=== PATIENT | female | born 1950 | race Caucasian/White ===

== ENCOUNTER 2023-05-19 14:06 | Inpatient (IN) | payer BC, SELFPAY ==
[2023-05-19 15:00] VITALS: BP 137/85; PULSE 80; RESP 18; TEMP 36.2; O2SAT 98
[2023-05-19 18:00] VITALS: BP 132/64; PULSE 69; RESP 18; TEMP 36.2; O2SAT 98
--- NOTE | 2023-05-19 18:13 | PC.ADMIT ---
Patient arrived via stretcher from [facility] in [place] with Dx of Suicide attempt. Patient alert and oriented x 4. She said, she took many tablets of Aspirin but she doesn't think she wanted to kill herself rather it was her call for help/attention. VS: 137/85-80-18, T 97.2, O2sat 98% on RA. Pt has chronic pain in bilateral shoulders, said, she will take Tylenol before going to bed. Appetite rather poor d/t Depression and decreased appetite. Patient's skin check completed. Self inflicted scratches on feet and bilateral legs. Bruised areas on bilateral arms from IVs. Patient is calm and pleasant. Ambulates independently, gait steady. Hospitalist Tania here and visiting pt at this time.
--- NOTE | 2023-05-19 18:20 | HO.PM.IMCN ---
History of Present Illness Data of Consult Service Date: 05/19/23 Requesting physician: Herman Benedict Primary Care Provider: Micah Lucas MD [facility] Reason for consult: medical H&P 73-year-old female with history of ADHD, anxiety, asthma, Nelson's esophagus/GERD, carpal tunnel syndrome, vertigo, hypothyroidism, IBS with sensitivity to grains, history of renal mass, memory impairment, migraines, and osteoarthritis of multiple sites admitted to Psychiatry following an intentional aspirin overdose where patient claims she took about 100 aspirin on 05/09 and was then admitted at [facility] from 05/16-05/18. Consult placed to hospitalist service for medical H and P. On admission to [facility], platelets remain stable at 288. Renal function normal. No evidence significant acid base disorder though did have hypokalemia 2.8 which was repleted orally with improvement to 3.9. She denies any significant ecchymosis, rectal bleeding, epistaxis, or hematuria, or other bleeding. No nausea, vomiting, sob, chest pain. Urine tox screen was positive for benzos and amphetamines. Hospital admission was otherwise uncomplicated. She has no complaints at this time. Denies any illicit drug use, cigarette smoking, or alcohol use. Review of Systems Review of Systems: General: No fevers, malaise, unintentional weight loss HEENT: No blurred vision, diplopia. No sore throat, nasal congestion, rhinorrhea, sinus pain, ear pain Cardiovascular: No chest pain, palpitations, or leg edema Respiratory: No shortness of breath, wheezing, cough GI: No abdominal pain, nausea, vomiting, diarrhea, constipation, melena, hematochezia : No dysuria, hematuria, increased urinary frequency, decreased urinary output MSK: No myalgia, back pain Neuro: No headaches, weakness, paresthesias Skin: No rashes or lesions [facility] Medical History ADHD Anxiety Barretts esophagus GERD (gastroesophageal reflux disease) Hypothyroidism IBS (irritable bowel syndrome) Memory impairment Migraines Osteoarthritis, multiple sites Renal mass Vertigo Social History Household Members: Spouse Housing: House Do you presently have visiting nurse or other home services: No Patient Tobacco Use Status: Never used Tobacco Use of substances other than those prescribed or required for medical reasons: Yes Substance Use Type: Marijuana Substance Use Frequency: Occasionally Last Used Substance: Unknown Last Used Substance Other:: 6 years ago or more Currently Displaying Signs/Symptoms of Drug Intoxication Withdrawal: No Any prior treatment program specific to substance use: No Have you been hit, kicked, punched, or otherwise hurt by someone within the past year? If so, by whom?: No Do you feel safe in your current relationship?: Yes Is there a partner from a previous relationship who is making you feel unsafe now?: No Are you made to feel afraid or neglected: No Advance Directives: No Advance Directives Information Provided: Yes Do you have thoughts of harming others: None Do you have a plan to hurt others: No Plan Recently lost weight without trying: Yes How much weight loss: 2-13 pounds Eating poorly because of decreased appetite: Yes Nutrition screen score: 4 Nutrition Risks: Poor intake 0-25% >4 days Patient : No : No Poor oral hygiene: No Meds Allergies Allergy/AdvReac Type Severity Reaction Status Date / Time Unable to Assess Allergy Verified 05/19/23 14:11 Active Medications: Current Medications Acetaminophen (Acetaminophen 325 Mg Tablet) 650 mg PO Q6H PRN PRN Reason: Headache/Pain Mild Scale (1-3) Al Hydroxide/Mg Hydroxide (Magnesium Hydrox/Alum Hydrox 30 Ml Oral.Susp) 30 ml PO Q6H PRN PRN Reason: Heartburn/Nausea Amphetamine/Dextroamphetamine (Amphetamine Mixed Salts 10 Mg Tablet) 10 mg PO DAILY [facility] Diazepam (Diazepam 5 Mg Tablet) 10 mg PO DAILY [facility] Duloxetine HCl (Duloxetine Hcl 20 Mg Capsule.Dr) 20 mg PO DAILY [facility] Fluticasone Propionate (Fluticasone Propionate Nasal 16 Gm [place]) 1 spray NOSTRIL-B BID [facility] Folic Acid (Folic Acid 1 Mg Tablet) 1 mg PO DAILY [facility] Hydroxyzine HCl (Hydroxyzine Hcl 25 Mg Tablet) 25 mg PO Q6H PRN PRN Reason: Anxiety Levothyroxine Sodium 112 mcg/ (Levothyroxine Sodium 25 mcg) 137 mcg PO DAILY@0600 [facility] Magnesium Hydroxide (Milk Of Magnesia 30 Ml Oral.Susp) 30 ml PO DAILY PRN PRN Reason: Constipation Methocarbamol (Methocarbamol 500 Mg Tablet) 500 mg PO TID [facility] Non-Formulary Medication (Eszopiclone) 2 mg PO BEDTIME [facility] Omeprazole (Omeprazole 20 Mg Capsule.Dr) 20 mg PO BID@0630,1630 [facility] Oxycodone HCl (Oxycodone Hcl Immed Release 5 Mg Tablet) 5 mg PO Q3H PRN PRN Reason: Pain, Severe (Pain Scale 7-10) Tramadol HCl (Tramadol Hcl 50 Mg Tablet) 50 mg PO BID PRN PRN Reason: Pain Trazodone HCl (Trazodone Hcl 50 Mg Tablet) 50 mg PO BEDTIME MRX1 PRN PRN Reason: Insomnia Vitamin D (Cholecalciferol (Vitamin D3) 25 Mcg Tablet) 125 mcg PO DAILY [facility] Home Medications Medication Instructions Recorded Confirmed Last Taken Type Vitamin D3 5,000 unit PO USEASDIRECTD 05/19/23 05/19/23 Unknown History dextroamphetamine-amphetamine 10 10 mg PO DAILY 05/19/23 05/19/23 Unknown History mg tablet (Adderall) diazepam 5 mg tablet 10 mg PO DAILY 05/19/23 05/19/23 Unknown History duloxetine 30 mg capsule,delayed 20 mg PO DAILY 05/19/23 05/19/23 Unknown History release eszopiclone 2 mg tablet 2 mg PO BEDTIME 05/19/23 05/19/23 Unknown History flunisolide 25 mcg (0.025 %) nasal 25 mcg intranasal BID 05/19/23 05/19/23 Unknown History spray folic acid 1 mg PO DAILY 05/19/23 05/19/23 Unknown History levothyroxine 125 mcg tablet 137 mcg PO DAILY 05/19/23 05/19/23 Unknown History methocarbamol 500 mg tablet 500 mg PO TID 05/19/23 05/19/23 Unknown History omeprazole 20 mg capsule,delayed 20 mg PO BID 05/19/23 05/19/23 Unknown History release oxycodone 5 mg tablet 5 mg PO Q2-4H PRN Pain 05/19/23 05/19/23 Unknown History tramadol 50 mg PO USEASDIRECTD PRN Pain 05/19/23 05/19/23 Unknown History Physical Exam Vital Signs and Narrative: Vital Signs: Last Vital Signs Temp 97.2 F 05/19/23 15:00 Pulse 80 05/19/23 15:00 Resp 18 05/19/23 15:00 BP 137/85 05/19/23 15:00 Pulse Ox 98 05/19/23 15:00 O2 Del Method Room Air 05/19/23 15:00 Constitutional - Awake and Alert, No apparent distress Eyes - PERRLA, EOMI Head- normocephalic, atraumatic. [place] Cardiovascular - S1S2, RRR, No edema Respiratory - Normal lung expansion, Normal respiratory effort, No respiratory distress, CTA bilaterally Gastrointestinal - NT / ND; +BS; No rebound or guarding Extremities - no calf tenderness bilaterally, no swelling Musculoskeletal - Normal inspection, normal ROM Skin - Warm/Dry Neurological - Alert & oriented x3, CN II-XII in tact, / strength BUE and BLE Psychological - Appropriate affect Assessment and Plan (1) Routine medical exam: Status: Acute Plan 73-year-old female with history of ADHD, anxiety, asthma, Nelson's esophagus/GERD, carpal tunnel syndrome, vertigo, hypothyroidism, IBS with sensitivity to grains, history of renal mass, memory impairment, migraines, and osteoarthritis of multiple sites admitted to Psychiatry following an intentional aspirin overdose where patient claims she took about 100 aspirin on 05/09 and was then admitted at [facility] from 05/16-05/18. Consult placed to hospitalist service for medical H and P. #Salicylate overdose -pt reports having taken 100 tabs asa on 05/09 and presented to [facility] admitted 05/16-05/18 -No significant acid/base disturbance, thought hypokalemia 2.8, repleted with 60meq KCl PO, improved to 3.9 -Platelets stable at 288. No bleeding sequela -repeat CBC and BMP tomorrow -Plan per psych #Mood disorder/ADHD -plan per psychiatry # hypothyroidism -euthyroid at [facility] -continue levothyroxine # Nelson's esophagus/GERD -continue PPI, Tums p.r.n. #Asthma -continue maintenance medications, albuterol p.r.n. # osteoarthritis -continue home meds #CKD stage 3 -renal function rishi Thank you for allowing me to participate in this consult. Signing off at this time. Please do not hesitate to call for further questions. Time Spent With Patient Time: Total time managing care of this patient today ____ minutes.
[2023-05-19] MEDS: Acetaminophen 325 MG TABLET 650 MG PO (21:06)
[2023-05-19] MEDS: traMADoL HCL 50 MG TABLET PO (21:07)
[2023-05-19] MEDS: Calcium Carbonate 750 MG TAB.CHEW PO (21:08)
[2023-05-19] MEDS: traZODone HCL 50 MG TABLET PO (21:14)
[2023-05-19] MEDS: methocarbamoL 500 MG TABLET PO (21:14)
[2023-05-19] MEDS: Fluticasone Propionate Nasal 16 GM SPRAY 1 SPRAY NOSTRIL-B (21:17)
[2023-05-19] MEDS: Magnesium Hydrox/Alum Hydrox 30 ML ORAL.SUSP PO (22:49)
[2023-05-20] MEDS: Calcium Carbonate 750 MG TAB.CHEW PO (03:02)
[2023-05-20] MEDS: hydrOXYzine HCL 25 MG TABLET PO ×2 (03:02→20:12)
[2023-05-20] MEDS: Omeprazole 20 MG CAPSULE.DR PO ×2 (06:02→15:45)
[2023-05-20] MEDS: Levothyroxine Sodium 112 MCG, Levothyroxine Sodium 25 MCG 137 MCG PO (06:03)
[2023-05-20 07:55] VITALS: BP 115/71; PULSE 62; RESP 18; TEMP 35.8; O2SAT 99
[2023-05-20] MEDS: Amphetamine Mixed Salts 10 MG TABLET PO (07:58)
[2023-05-20] MEDS: Cholecalciferol (Vitamin D3) 25 MCG TABLET 125 MCG PO (07:58)
[2023-05-20] MEDS: Folic Acid 1 MG TABLET PO (07:59)
[2023-05-20] MEDS: Fluticasone Propionate Nasal 16 GM SPRAY 1 SPRAY NOSTRIL-B ×2 (08:00→20:12)
[2023-05-20] MEDS: DULoxetine HCl 20 MG CAPSULE.DR PO ×2 (08:01→20:12)
--- NOTE | 2023-05-20 08:12 | P.HPPS_ITS ---
HPI Date of Service: 05/20/23 Chief Complaint: F32.9 Sources of Information: patient interviewed, chart reviewed and crisis/core team assessment reviewed HPI Subjective Notes: Archer Warning and Conditional Voluntary Narrative: The patient is a 73-year-old female, , mother of 2 adult children, living with her with good social support. The patient carries a diagnosis of major depressive disorder, ADHD, and several medical comorbidities. According to the crisis assessment and patient's statement, the patient was feeling very depressed for the last months, and she impulsively took an overdose of more than 100 tablets of aspirin in a suicidal attempt. Her rushed to the emergency room, she was medically treated and once she was medically cleared transferring to this facility for psychiatric stabilization. On interview, the patient reported that she had been more isolated with exacerbation of depressive symptoms elicited by depressed mood, anhedonia, lack of energy, feelings of hopelessness and worthlessness and recently with suicidal ideation. She adamantly denies psychotic symptoms. We discussed risks, benefits, side-effects and alternatives and she agreed to the medication changes. The patient was able to contract for safety in the facility and she understood Archer warning. She is willing to continue treatment in this facility. Past Psychiatric History: The patient's 1st psychiatric contact was at the age of 18 after her father committed suicide. She was admitted into the hospital after an overdose of tablets. She had been following outpatient services with different psychiatrist on and off for the last years. She does not have psychot herapy at this moment. Medical Evaluation Reviewed: Yes [facility] Medical History (Updated 05/20/23 @ 15:49 by Herman Benedict) ADHD Anxiety Barretts esophagus GERD (gastroesophageal reflux disease) Hypothyroidism IBS (irritable bowel syndrome) Memory impairment Migraines Osteoarthritis, multiple sites Renal mass Vertigo Family History: Her father committed suicide when she was a teenager. Social History: The patient is currently , mother of 2 adult children with good social support. 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 Substance History: Denies Trauma History: Denies Diagnostics Vital Signs (24Hr): Vital Signs - 24 hr 05/19/23 15:00 05/19/23 18:00 05/20/23 07:55 Temperature 97.2 F 97.1 F 96.5 F L Pulse Rate 80 69 62 Respiratory Rate 18 18 18 Blood Pressure 137/85 132/64 115/71 Pulse Oximetry 98 98 99 Oxygen Delivery Method Room Air Room Air Room Air Labs 05/20/23 08:55 Meds/Allergies Meds Home Medications Medication Instructions Recorded Confirmed Type Vitamin D3 5,000 unit PO USEASDIRECTD 05/19/23 05/19/23 History dextroamphetamine-amphetamine 10 10 mg PO DAILY 05/19/23 05/19/23 History mg tablet (Adderall) diazepam 5 mg tablet 10 mg PO DAILY 05/19/23 05/19/23 History duloxetine 30 mg capsule,delayed 20 mg PO DAILY 05/19/23 05/19/23 History release eszopiclone 2 mg tablet 2 mg PO BEDTIME 05/19/23 05/19/23 History flunisolide 25 mcg (0.025 %) nasal 25 mcg intranasal BID 05/19/23 05/19/23 History spray folic acid 1 mg PO DAILY 05/19/23 05/19/23 History levothyroxine 125 mcg tablet 137 mcg PO DAILY 05/19/23 05/19/23 History methocarbamol 500 mg tablet 500 mg PO TID 05/19/23 05/19/23 History omeprazole 20 mg capsule,delayed 20 mg PO BID 05/19/23 05/19/23 History release oxycodone 5 mg tablet 5 mg PO Q2-4H PRN Pain 05/19/23 05/19/23 History tramadol 50 mg PO USEASDIRECTD PRN Pain 05/19/23 05/19/23 History Allergies Allergies Allergy/AdvReac Type Severity Reaction Status Date / Time Unable to Assess Allergy Verified 05/19/23 14:11 Mental Status Exam Mental Status Exam Patient Appearance: Well Grooomed and Appropriate Patient Orientation: Person, Place, Time and Situation Level of Consciousness: Awake and Appropriate Patient Behavior: Guarded and Passive Mood Description: Withdrawn Affect Description: Constricted Patient Cognition Impaired: Yes Ability to Follow Directions: Good Speech Pattern: Clear Hallucinations: None Delusions: Not Present Thought Process: Distracted and Linear Thought Content: positive for Circumstantial Judgement: Fair Assessment & Plan Assessment & Plan (1) Major depressive disorder: Status: Acute Code(s): F32.9 - Major depressive disorder, single episode, unspecified (2) ADHD: Status: Acute Code(s): F90.9 - Attention-deficit hyperactivity disorder, unspecified type Plan The patient is an elderly female with a past history of depression admitted for a suicidal attempt by overdose of [id number] aspirin. She was medically cleared transferred to this facility for psychiatric stabilization. The patient has strong family history of mental illness since her father committed suicide when she was a teenager. Plan 1. Gather collateral information. 2. Continue with Adult and other medications. 3. We discussed risks, benefits, side-effects and alternatives and she agreed increase Cymbalta up to 20 mg p.o. b.i.d.. 4. Continue medical workout. 5. Reassessment results. 6. 50 minutes checks since the patient is able to contract for safety. Patient educated on: diagnosis and therapeutic strategies Informed Consent: understands Reason for continued inpatient stay Substantial Risk for: harm to self, inability to function, rapid decompensation and med/psych decompensation Statement Statement: I have reviewed the history and physical and performed a pertinent examination on my patient. No changes have occurred unless specified. If the History and Physical was not performed prior to admission, the Hospitalist's service will be consulted for completing the admission physical. Time Spent With Patient Time: Total time managing care of this patient today _45___ minutes.
[2023-05-20 09:51] LABS: Alanine Aminotransferase 23 U/L (0-31); Albumin Level 4.4 g/dL (3.5-5.0); Alkaline Phosphatase 80 U/L (39-117); Anion Gap 16 (12-20); Aspartate Amino Transferase 23 U/L (5-31); Bilirubin Total 0.6 mg/dL (0.0-1.0); Blood Urea Nitrogen 20 mg/dL (9-16); Carbon Dioxide 29 mmol/L (22-29); Chloride 95 mmol/L (96-108); Cholesterol 362 mg/dL; Estimated Glomerular Filt Rate 43; Glucose Fasting 115 mg/dL (60-99); HDL Cholesterol 43 mg/dL; LDL Cholesterol Calculated 274 mg/dl; Potassium 3.8 mmol/L (3.3-5.1); Sodium 136 mmol/L (135-145); Total Protein 7.7 g/dL (6.5-8.0); Triglycerides 225 mg/dL
[2023-05-20] MEDS: traMADoL HCL 50 MG TABLET PO (13:48)
[2023-05-20] MEDS: Acetaminophen 325 MG TABLET 650 MG PO (15:45)
[2023-05-20 19:54] VITALS: BP 102/72; PULSE 66; RESP 18; TEMP 36.1; O2SAT 96
[2023-05-21 07:54] VITALS: BP 128/73; PULSE 76; RESP 18; TEMP 36.1; O2SAT 99
[2023-05-21] MEDS: Fluticasone Propionate Nasal 16 GM SPRAY 1 SPRAY NOSTRIL-B ×2 (08:17→20:36)
[2023-05-21] MEDS: Acetaminophen 325 MG TABLET 650 MG PO ×2 (08:18→20:30)
[2023-05-21] MEDS: Amphetamine Mixed Salts 10 MG TABLET PO (08:18)
[2023-05-21] MEDS: Levothyroxine Sodium 112 MCG, Levothyroxine Sodium 25 MCG 137 MCG PO (08:18)
[2023-05-21] MEDS: Cholecalciferol (Vitamin D3) 25 MCG TABLET 125 MCG PO (08:19)
[2023-05-21] MEDS: Folic Acid 1 MG TABLET PO (08:20)
[2023-05-21] MEDS: Omeprazole 20 MG CAPSULE.DR PO ×2 (08:20→16:26)
[2023-05-21] MEDS: DULoxetine HCl 20 MG CAPSULE.DR PO ×2 (08:20→20:30)
--- NOTE | 2023-05-21 10:26 | P.PNPSI_ITS ---
Subjective Subjective Date of Service: 05/21/23 Reason For Visit: F32.9 Subjective Notes: Conditional Voluntary Interim History: The nursing staff reported the patient slept 6 hours she denies active suicidal ideation and according to the staff she disclosed that she has a poor relation with her . She feels depressed but she is able to contract for safety in the facility. The social media community manager reported that on interview the patient reported that her suicidal attempt was very impulsive. The occupational therapist reported that she scored 18/30 on the Fairview test and 5.0 on the Andi test that shows some mild to moderate cognitive impairment. She did fairly well on groups. On interview we discussed the findings of the occupational therapist and she agr eed to take Aricept 5 mg p.o. q.h.s.. Also we increased the trazodone p.r.n. up to 100 mg at night to target insomnia. Mental Status Exam Mental Status Exam Patient Appearance: Appropriate Patient Orientation: Person and Situation Level of Consciousness: Awake and Appropriate Patient Behavior: Guarded and Passive Mood Description: Calm Affect Description: Constricted Patient Cognition Impaired: Yes Ability to Follow Directions: Good Speech Pattern: Appropriate Hallucinations: None Delusions: Not Present Thought Process: Distracted Thought Content: positive for Almond and positive for Poverty of Content Judgement: Poor Diagnostics Vital Signs (24Hr): Vital Signs - 24 hr 05/20/23 19:54 05/21/23 07:54 Temperature 96.9 F 97.0 F Pulse Rate 66 76 Respiratory Rate 18 18 Blood Pressure 102/72 128/73 Pulse Oximetry 96 99 Oxygen Delivery Method Room Air Room Air Labs 05/20/23 08:55 Labs: Laboratory Results - last 48 hr 05/20/23 08:55 Sodium 136 Potassium 3.8 Chloride 95 L Carbon Dioxide 29 Anion Gap 16 BUN 20 H Creatinine 1.23 Estim Creat Clear Calc TNP Estimated GFR 43 Fasting Glucose 115 H Calcium 11.0 H Total Bilirubin 0.6 AST 23 ALT 23 Alkaline Phosphatase 80 Total Protein 7.7 Albumin 4.4 Triglycerides 225 Cholesterol 362 LDL Cholesterol, Calc 274 HDL Cholesterol 43 Medications Medications Current Medications Acetaminophen (Acetaminophen 325 Mg Tablet) 650 mg PO Q6H PRN PRN Reason: Headache/Pain Mild Scale (1-3) Last Admin: 05/21/23 08:18 Dose: 650 mg Al Hydroxide/Mg Hydroxide (Magnesium Hydrox/Alum Hydrox 30 Ml Oral.Susp) 30 ml PO Q6H PRN PRN Reason: Heartburn/Nausea Last Admin: 05/19/23 22:49 Dose: 30 ml Amphetamine/Dextroamphetamine (Amphetamine Mixed Salts 10 Mg Tablet) 10 mg PO DAILY [facility] Last Admin: 05/21/23 08:18 Dose: 10 mg Calcium Carbonate (Calcium Carbonate 750 Mg Tab.Chew) 750 mg PO Q4H PRN PRN Reason: Heartburn Last Admin: 05/20/23 03:02 Dose: 750 mg Diazepam (Diazepam 5 Mg Tablet) 5 mg PO DAILY PRN PRN Reason: Anxiety Donepezil HCl (Donepezil Hcl 5 Mg Tablet) 5 mg PO BEDTIME [facility] Duloxetine HCl (Duloxetine Hcl 20 Mg Capsule.Dr) 20 mg PO BID [facility] Last Admin: 05/21/23 08:20 Dose: 20 mg Fluticasone Propionate (Fluticasone Propionate Nasal 16 Gm [place]) 1 spray NOSTRIL-B BID [facility] Last Admin: 05/21/23 08:17 Dose: 1 spray Folic Acid (Folic Acid 1 Mg Tablet) 1 mg PO DAILY [facility] Last Admin: 05/21/23 08:20 Dose: 1 mg Hydroxyzine HCl (Hydroxyzine Hcl 25 Mg Tablet) 25 mg PO Q6H PRN PRN Reason: Anxiety Last Admin: 05/20/23 20:12 Dose: 25 mg Levothyroxine Sodium 112 mcg/ (Levothyroxine Sodium 25 mcg) 137 mcg PO DAILY@0600 [facility] Last Admin: 05/21/23 08:18 Dose: 137 mcg Magnesium Hydroxide (Milk Of Magnesia 30 Ml Oral.Susp) 30 ml PO DAILY PRN PRN Reason: Constipation Methocarbamol (Methocarbamol 500 Mg Tablet) 500 mg PO TID PRN PRN Reason: muscle spasms Omeprazole (Omeprazole 20 Mg Capsule.Dr) 20 mg PO BID@0630,1630 [facility] Last Admin: 05/21/23 08:20 Dose: 20 mg Oxycodone HCl (Oxycodone Hcl Immed Release 5 Mg Tablet) 5 mg PO Q3H PRN PRN Reason: Pain, Severe (Pain Scale 7-10) Tramadol HCl (Tramadol Hcl 50 Mg Tablet) 50 mg PO BID PRN PRN Reason: Pain Last Admin: 05/20/23 13:48 Dose: 50 mg Trazodone HCl (Trazodone Hcl 100 Mg Tablet) 100 mg PO BEDTIME MRX1 PRN PRN Reason: Insomnia Vitamin D (Cholecalciferol (Vitamin D3) 25 Mcg Tablet) 125 mcg PO DAILY [facility] Last Admin: 05/21/23 08:19 Dose: 125 mcg Allergies Allergies Allergy/AdvReac Type Severity Reaction Status Date / Time Unable to Assess Allergy Verified 05/19/23 14:11 Assessment & Plan Assessment & Plan (1) Major depressive disorder: Status: Acute Code(s): F32.9 - Major depressive disorder, single episode, unspecified (2) ADHD: Status: Acute Code(s): F90.9 - Attention-deficit hyperactivity disorder, unspecified type Plan The patient is an elderly female with a past history of depression admitted for a suicidal attempt by overdose of [id number] aspirin. She was medically cleared transferred to this facility for psychiatric stabilization. The patient has strong family history of mental illness since her father committed suicide when she was a teenager. Plan 1. Gather collateral information. 2. Continue with Adult and other medications. 3. We discussed risks, benefits, side-effects and alternatives and she agreed increase Cymbalta up to 20 mg p.o. b.i.d.. 4. Continue medical workout. 5. Reassessment results. 6. 15 minutes checks since the patient is able to contract for safety. 7. Start Aricept 5 point mg p.o. q.h.s. to target dementia. She has scored 18/30 on the Fairview test and 5.0 on the Andi test. Reason for continued inpatient stay Substantial Risk for: inability to function, rapid decompensation and med/psych decompensation Time Spent With Patient Time: Total time managing care of this patient today __20__ minutes.
[2023-05-21 18:00] VITALS: BP 103/57; PULSE 61; RESP 18; TEMP 36.7; O2SAT 97
[2023-05-21] MEDS: Donepezil HCl 5 MG TABLET PO (20:29)
[2023-05-22] MEDS: Omeprazole 20 MG CAPSULE.DR PO ×2 (06:15→16:22)
[2023-05-22] MEDS: Levothyroxine Sodium 112 MCG, Levothyroxine Sodium 25 MCG 137 MCG PO (06:15)
[2023-05-22 08:20] VITALS: BP 116/74; PULSE 68; RESP 18; TEMP 36.7; O2SAT 96
[2023-05-22] MEDS: Amphetamine Mixed Salts 10 MG TABLET PO (08:26)
[2023-05-22] MEDS: Cholecalciferol (Vitamin D3) 25 MCG TABLET 125 MCG PO (08:27)
[2023-05-22] MEDS: Folic Acid 1 MG TABLET PO (08:27)
[2023-05-22] MEDS: DULoxetine HCl 20 MG CAPSULE.DR PO ×2 (09:33→20:02)
[2023-05-22] MEDS: Fluticasone Propionate Nasal 16 GM SPRAY 1 SPRAY NOSTRIL-B ×2 (09:35→20:08)
--- NOTE | 2023-05-22 11:41 | P.PNPSI_ITS ---
Subjective Subjective Date of Service: 05/22/23 Reason For Visit: F32.9 Subjective Notes: Conditional Voluntary Interim History: The nursing staff reported the patient is alert oriented x4, she tries to minimize her overdose. She has been social in the unit, she refused Cymbalta in the evening. The social science research assistant reported contacted her but so far we could not get the response. We will try to get a family meeting as soon as possible. On interview the patient denies active suicidal ideation she is pleasant and cooperative, will increase her Cymbalta. Mental Status Exam Mental Status Exam Patient Appearance: Well Grooomed and Appropriate Patient Orientation: Person and Situation Level of Consciousness: Awake and Appropriate Patient Behavior: Guarded and Passive Mood Description: Withdrawn Affect Description: Calm Patient Cognition Impaired: Yes Ability to Follow Directions: Good Speech Pattern: Clear Hallucinations: None Delusions: Not Present Thought Process: Linear Thought Content: positive for [place] Judgement: Fair Diagnostics Vital Signs (24Hr): Vital Signs - 24 hr 05/21/23 18:00 05/22/23 08:20 Temperature 98.1 F 98.1 F Pulse Rate 61 68 Respiratory Rate 18 18 Blood Pressure 103/57 L 116/74 Pulse Oximetry 97 96 Oxygen Delivery Method Room Air Room Air Labs 05/20/23 08:55 Medications Medications Current Medications Acetaminophen (Acetaminophen 325 Mg Tablet) 650 mg PO Q6H PRN PRN Reason: Headache/Pain Mild Scale (1-3) Last Admin: 05/21/23 20:30 Dose: 650 mg Al Hydroxide/Mg Hydroxide (Magnesium Hydrox/Alum Hydrox 30 Ml Oral.Susp) 30 ml PO Q6H PRN PRN Reason: Heartburn/Nausea Last Admin: 05/19/23 22:49 Dose: 30 ml Amphetamine/Dextroamphetamine (Amphetamine Mixed Salts 10 Mg Tablet) 10 mg PO DAILY [facility] Last Admin: 05/22/23 08:26 Dose: 10 mg Calcium Carbonate (Calcium Carbonate 750 Mg Tab.Chew) 750 mg PO Q4H PRN PRN Reason: Heartburn Last Admin: 05/20/23 03:02 Dose: 750 mg Diazepam (Diazepam 5 Mg Tablet) 5 mg PO DAILY PRN PRN Reason: Anxiety Donepezil HCl (Donepezil Hcl 5 Mg Tablet) 5 mg PO BEDTIME [facility] Last Admin: 05/21/23 20:29 Dose: 5 mg Duloxetine HCl (Duloxetine Hcl 20 Mg Capsule.) 20 mg PO BID ON LICENSE OF [facility] Last Admin: 05/22/23 09:33 Dose: 20 mg Fluticasone Propionate (Fluticasone Propionate Nasal 16 Gm [place]) 1 spray NOSTRIL-B BID ON LICENSE OF [facility] Last Admin: 05/22/23 09:35 Dose: 1 spray Folic Acid (Folic Acid 1 Mg Tablet) 1 mg PO DAILY ON [facility] OF [facility] Last Admin: 05/22/23 08:27 Dose: 1 mg Hydroxyzine HCl (Hydroxyzine Hcl 25 Mg Tablet) 25 mg PO Q6H PRN PRN Reason: Anxiety Last Admin: 05/20/23 20:12 Dose: 25 mg Levothyroxine Sodium 112 mcg/ (Levothyroxine Sodium 25 mcg) 137 mcg PO DAILY@0600 ON [facility] OF [facility] Last Admin: 05/22/23 06:15 Dose: 137 mcg Magnesium Hydroxide (Milk Of Magnesia 30 Ml Oral.Susp) 30 ml PO DAILY PRN PRN Reason: Constipation Methocarbamol (Methocarbamol 500 Mg Tablet) 500 mg PO TID PRN PRN Reason: muscle spasms Omeprazole (Omeprazole 20 Mg Capsule.) 20 mg PO BID@0630,1630 ON LICENSE OF [facility] Last Admin: 05/22/23 06:15 Dose: 20 mg Oxycodone HCl (Oxycodone Hcl Immed Release 5 Mg Tablet) 5 mg PO Q3H PRN PRN Reason: Pain, Severe (Pain Scale 7-10) Tramadol HCl (Tramadol Hcl 50 Mg Tablet) 50 mg PO BID PRN PRN Reason: Pain Last Admin: 05/20/23 13:48 Dose: 50 mg Trazodone HCl (Trazodone Hcl 100 Mg Tablet) 100 mg PO BEDTIME MRX1 PRN PRN Reason: Insomnia Vitamin D (Cholecalciferol (Vitamin D3) 25 Mcg Tablet) 125 mcg PO DAILY ON LICENSE OF [facility] Last Admin: 05/22/23 08:27 Dose: 125 mcg Allergies Allergies Allergy/AdvReac Type Severity Reaction Status Date / Time Unable to Assess Allergy Verified 05/19/23 14:11 Assessment & Plan Assessment & Plan (1) Major depressive disorder: Status: Acute Code(s): F32.9 - Major depressive disorder, single episode, unspecified (2) ADHD: Status: Acute Code(s): F90.9 - Attention-deficit hyperactivity disorder, unspecified type Plan The patient is an elderly female with a past history of depression admitted for a suicidal attempt by overdose of [id number] aspirin. She was medically cleared transferred to this facility for psychiatric sta bilization. The patient has strong family history of mental illness since her father committed suicide when she was a teenager. Plan 1. Gather collateral information. 2. Continue with Adult and other medications. 3. We discussed risks, benefits, side-effects and alternatives and she agreed increase Cymbalta up to 20 mg p.o. b.i.d.. 4. Continue medical workout. 5. Reassessment results. 6. 15 minutes checks since the patient is able to contract for safety. 7. Start Aricept 5 point mg p.o. q.h.s. to target dementia. She has scored 18/30 on the [place] test and 5.0 on the Andi test. Reason for continued inpatient stay Substantial Risk for: inability to function, rapid decompensation and med/psych decompensation Time Spent With Patient Time: Total time managing care of this patient today _20___ minutes.
[2023-05-22] MEDS: Acetaminophen 325 MG TABLET 650 MG PO (15:31)
[2023-05-22 19:59] VITALS: BP 103/61; PULSE 70; RESP 18; TEMP 36.2; O2SAT 95
[2023-05-22] MEDS: Donepezil HCl 5 MG TABLET PO (20:02)
[2023-05-22] MEDS: traZODone HCL 100 MG TABLET PO (20:02)
[2023-05-23] MEDS: Levothyroxine Sodium 112 MCG, Levothyroxine Sodium 25 MCG 137 MCG PO (06:20)
[2023-05-23 08:40] VITALS: BP 101/64; PULSE 70; RESP 18; TEMP 36.3; O2SAT 98
[2023-05-23] MEDS: Amphetamine Mixed Salts 10 MG TABLET PO (08:44)
[2023-05-23] MEDS: Omeprazole 20 MG CAPSULE.DR PO ×2 (08:44→16:10)
[2023-05-23] MEDS: DULoxetine HCl 20 MG CAPSULE.DR PO ×2 (08:44→20:51)
[2023-05-23] MEDS: Cholecalciferol (Vitamin D3) 25 MCG TABLET 125 MCG PO (08:45)
[2023-05-23] MEDS: Folic Acid 1 MG TABLET PO (08:46)
[2023-05-23] MEDS: Fluticasone Propionate Nasal 16 GM SPRAY 1 SPRAY NOSTRIL-B ×2 (08:49→20:56)
[2023-05-23] MEDS: Acetaminophen 325 MG TABLET 650 MG PO (12:15)
--- NOTE | 2023-05-23 14:54 | P.PNPSI_ITS ---
Subjective Subjective Date of Service: 05/23/23 Reason For Visit: F32.9 Subjective Notes: Conditional Voluntary Interim History: The nursing staff reported the patient had been anxious and depressed she was waiting in the evening. She slept well okay last night and she was confused in the evening. The social media sr strategy manager reported that she has a strong history of trauma that her disclosed that her father committed suicide that she found the body. On interview the patient reports mild anxiety, I will increase her Aricept to 10 mg p.o. q.h.s.. The social media sr strategy manager reported we will have a family meeting next Friday and we were going to for a therapist to help her out in the community. Mental Status Exam Mental Status Exam Patient Appearance: Well Grooomed and Appropriate Patient Orientation: Person and Situation Level of Consciousness: Awake and Appropriate Patient Behavior: Guarded and Passive Mood Description: Calm Affect Description: Constricted Patient Cognition Impaired: Yes Ability to Follow Directions: Good Speech Pattern: Clear Hallucinations: None Delusions: Not Present Thought Process: Distracted and Slowed Thinking Thought Content: positive for [place] Judgement: Fair Diagnostics Vital Signs (24Hr): Vital Signs - 24 hr 05/22/23 19:59 05/23/23 08:40 Temperature 97.2 F 97.3 F Pulse Rate 70 70 Respiratory Rate 18 18 Blood Pressure 103/61 101/64 Pulse Oximetry 95 98 Oxygen Delivery Method Room Air Room Air Labs 05/20/23 08:55 Medications Medications Current Medications Acetaminophen (Acetaminophen 325 Mg Tablet) 650 mg PO Q6H PRN PRN Reason: Headache/Pain Mild Scale (1-3) Last Admin: 05/23/23 12:15 Dose: 650 mg Al Hydroxide/Mg Hydroxide (Magnesium Hydrox/Alum Hydrox 30 Ml Oral.Susp) 30 ml PO Q6H PRN PRN Reason: Heartburn/Nausea Last Admin: 05/19/23 22:49 Dose: 30 ml Amphetamine/Dextroamphetamine (Amphetamine Mixed Salts 10 Mg Tablet) 10 mg PO DAILY [facility] Last Admin: 05/23/23 08:44 Dose: 10 mg Calcium Carbonate (Calcium Carbonate 750 Mg Tab.Chew) 750 mg PO Q4H PRN PRN Reason: Heartburn Last Admin: 05/20/23 03:02 Dose: 750 mg Diazepam (Diazepam 5 Mg Tablet) 5 mg PO DAILY PRN PRN Reason: Anxiety Donepezil HCl (Donepezil Hcl 5 Mg Tablet) 5 mg PO BEDTIME [facility] Last Admin: 05/22/23 20:02 Dose: 5 mg Duloxetine HCl (Duloxetine Hcl 20 Mg Capsule.Dr) 20 mg PO BID [facility] Last Admin: 05/23/23 08:44 Dose: 20 mg Fluticasone Propionate (Fluticasone Propionate Nasal 16 Gm [place]) 1 spray NOSTRIL-B BID [facility] Last Admin: 05/23/23 08:49 Dose: 1 spray Folic Acid (Folic Acid 1 Mg Tablet) 1 mg PO DAILY [facility] Last Admin: 05/23/23 08:46 Dose: 1 mg Hydroxyzine HCl (Hydroxyzine Hcl 25 Mg Tablet) 25 mg PO Q6H PRN PRN Reason: Anxiety Last Admin: 05/20/23 20:12 Dose: 25 mg Levothyroxine Sodium 112 mcg/ (Levothyroxine Sodium 25 mcg) 137 mcg PO DAILY@0600 [facility] Last Admin: 05/23/23 06:20 Dose: 137 mcg Magnesium Hydroxide (Milk Of Magnesia 30 Ml Oral.Susp) 30 ml PO DAILY PRN PRN Reason: Constipation Methocarbamol (Methocarbamol 500 Mg Tablet) 500 mg PO TID PRN PRN Reason: muscle spasms Omeprazole (Omeprazole 20 Mg Capsule.Dr) 20 mg PO BID@0630,1630 [facility] Last Admin: 05/23/23 08:44 Dose: 20 mg Oxycodone HCl (Oxycodone Hcl Immed Release 5 Mg Tablet) 5 mg PO Q3H PRN PRN Reason: Pain, Severe (Pain Scale 7-10) Tramadol HCl (Tramadol Hcl 50 Mg Tablet) 50 mg PO BID PRN PRN Reason: Pain Last Admin: 05/20/23 13:48 Dose: 50 mg Trazodone HCl (Trazodone Hcl 100 Mg Tablet) 100 mg PO BEDTIME MRX1 PRN PRN Reason: Insomnia Last Admin: 05/22/23 20:02 Dose: 100 mg Vitamin D (Cholecalciferol (Vitamin D3) 25 Mcg Tablet) 125 mcg PO DAILY [facility] Last Admin: 05/23/23 08:45 Dose: 125 mcg Allergies Allergies Allergy/AdvReac Type Severity Reaction Status Date / Time Unable to Assess Allergy Verified 05/19/23 14:11 Assessment & Plan Assessment & Plan (1) Major depressive disorder: Status: Acute Code(s): F32.9 - Major depressive disorder, single episode, unspecified (2) ADHD: Status: Acute Code(s): F90.9 - Attention-deficit hyperactivity disorder, unspecified type Plan The patient is an elderly female with a past history of depression admitted for a suicidal attempt by overdose of [id number] aspirin. She was medically cleared transferred to this facility for psychiatric stabiliza tion. The patient has strong family history of mental illness since her father committed suicide when she was a teenager. Plan 1. Gather collateral information. 2. Continue with Adult and other medications. 3. We discussed risks, benefits, side-effects and alternatives and she agreed increase Cymbalta up to 20 mg p.o. b.i.d.. 4. Continue medical workout. 5. Reassessment results. 6. 15 minutes checks since the patient is able to contract for safety. 7. Start Aricept 5 point mg p.o. q.h.s. to target dementia. She has scored 18/30 on the [place] test and 5.0 on the Andi test. Today on May 23 we increased the to 10 mg p.o. q.h.s. Reason for continued inpatient stay Substantial Risk for: inability to function, rapid decompensation and med/psych decompensation Time Spent With Patient Time: Total time managing care of this patient today _20___ minutes.
[2023-05-23 18:00] VITALS: BP 135/79; PULSE 69; RESP 18; TEMP 35.9; O2SAT 96
[2023-05-23] MEDS: Donepezil HCl 10 MG TABLET PO (20:51)
[2023-05-23] MEDS: methocarbamoL 500 MG TABLET PO (21:28)
[2023-05-24] MEDS: Levothyroxine Sodium 112 MCG, Levothyroxine Sodium 25 MCG 137 MCG PO (06:19)
[2023-05-24] MEDS: Omeprazole 20 MG CAPSULE.DR PO ×2 (06:20→17:54)
[2023-05-24 08:20] VITALS: BP 128/79; PULSE 63; RESP 16; TEMP 35.9; O2SAT 98
[2023-05-24] MEDS: Folic Acid 1 MG TABLET PO (08:36)
[2023-05-24] MEDS: Cholecalciferol (Vitamin D3) 25 MCG TABLET 125 MCG PO (08:36)
[2023-05-24] MEDS: DULoxetine HCl 20 MG CAPSULE.DR PO ×2 (08:37→20:46)
[2023-05-24] MEDS: Amphetamine Mixed Salts 10 MG TABLET PO (08:38)
[2023-05-24] MEDS: Fluticasone Propionate Nasal 16 GM SPRAY 1 SPRAY NOSTRIL-B ×2 (11:03→20:45)
[2023-05-24] MEDS: Loperamide HCl 2 MG CAPSULE PO (12:19)
--- NOTE | 2023-05-24 16:57 | HO.PSYCHPN ---
Subjective Subjective Date of Service: 05/24/23 Reason For Visit: F32.9 Subjective Notes: 3 Day (exp05/28) Medical Problems Affecting Mental Status: No Interim History: Remembers me from consult in [facility]. Hopeful that she might be able to go home after family meeting Friday. Medication Compliance: Yes Side effects from medications: No Attending Groups: Yes Review of Systems Acute medical concerns: No Medical Review of Systems: unchanged Mental Status Exam Mental Status Exam Patient Appearance: Well Grooomed Patient Orientation: Person, Place, Time and Situation Level of Consciousness: Awake Patient Behavior: Appropriate Mood Description: Calm Affect Description: Appropriate Patient Cognition Impaired: No Ability to Follow Directions: Excellent Speech Pattern: Clear Memory Description: Intact Hallucinations: None Delusions: Not Present Thought Process: Linear Thought Content: positive for Intact Depressive Symptoms: Increased Anxiety Judgement: Fair Diagnostics Vital Signs (24Hr): Vital Signs - 24 hr 05/23/23 18:00 05/24/23 08:20 Temperature 96.7 F L 96.7 F L Pulse Rate 69 63 Respiratory Rate 18 16 Blood Pressure 135/79 128/79 Pulse Oximetry 96 98 Oxygen Delivery Method Room Air Room Air Labs 05/20/23 08:55 Medications Medications Current Medications Acetaminophen (Acetaminophen 325 Mg Tablet) 650 mg PO Q6H PRN PRN Reason: Headache/Pain Mild Scale (1-3) Last Admin: 05/23/23 12:15 Dose: 650 mg Al Hydroxide/Mg Hydroxide (Magnesium Hydrox/Alum Hydrox 30 Ml Oral.Susp) 30 ml PO Q6H PRN PRN Reason: Heartburn/Nausea Last Admin: 05/19/23 22:49 Dose: 30 ml Amphetamine/Dextroamphetamine (Amphetamine Mixed Salts 10 Mg Tablet) 10 mg PO DAILY [facility] Last Admin: 05/24/23 08:38 Dose: 10 mg Calcium Carbonate (Calcium Carbonate 750 Mg Tab.Chew) 750 mg PO Q4H PRN PRN Reason: Heartburn Last Admin: 05/20/23 03:02 Dose: 750 mg Diazepam (Diazepam 5 Mg Tablet) 5 mg PO DAILY PRN PRN Reason: Anxiety Donepezil HCl (Donepezil Hcl 10 Mg Tablet) 10 mg PO BEDTIME [facility] Last Admin: 05/23/23 20:51 Dose: 10 mg Duloxetine HCl (Duloxetine Hcl 20 Mg Capsule.Dr) 20 mg PO BID [facility] Last Admin: 05/24/23 08:37 Dose: 20 mg Fluticasone Propionate (Fluticasone Propionate Nasal 16 Gm [place]) 1 spray NOSTRIL-B BID [facility] Last Admin: 05/24/23 11:03 Dose: 1 spray Folic Acid (Folic Acid 1 Mg Tablet) 1 mg PO DAILY [facility] Last Admin: 05/24/23 08:36 Dose: 1 mg Hydroxyzine HCl (Hydroxyzine Hcl 25 Mg Tablet) 25 mg PO Q6H PRN PRN Reason: Anxiety Last Admin: 05/20/23 20:12 Dose: 25 mg Levothyroxine Sodium 112 mcg/ (Levothyroxine Sodium 25 mcg) 137 mcg PO DAILY@0600 [facility] Last Admin: 05/24/23 06:19 Dose: 137 mcg Loperamide HCl (Loperamide Hcl 2 Mg Capsule) 2 mg PO Q6H PRN PRN Reason: Diarrhea Last Admin: 05/24/23 12:19 Dose: 2 mg Magnesium Hydroxide (Milk Of Magnesia 30 Ml Oral.Susp) 30 ml PO DAILY PRN PRN Reason: Constipation Methocarbamol (Methocarbamol 500 Mg Tablet) 500 mg PO TID PRN PRN Reason: muscle spasms Last Admin: 05/23/23 21:28 Dose: 500 mg Omeprazole (Omeprazole 20 Mg Capsule.Dr) 20 mg PO BID@0630,1630 [facility] Last Admin: 05/24/23 06:20 Dose: 20 mg Oxycodone HCl (Oxycodone Hcl Immed Release 5 Mg Tablet) 5 mg PO Q3H PRN PRN Reason: Pain, Severe (Pain Scale 7-10) Tramadol HCl (Tramadol Hcl 50 Mg Tablet) 50 mg PO BID PRN PRN Reason: Pain Last Admin: 05/20/23 13:48 Dose: 50 mg Trazodone HCl (Trazodone Hcl 100 Mg Tablet) 100 mg PO BEDTIME MRX1 PRN PRN Reason: Insomnia Last Admin: 05/22/23 20:02 Dose: 100 mg Vitamin D (Cholecalciferol (Vitamin D3) 25 Mcg Tablet) 125 mcg PO DAILY [facility] Last Admin: 05/24/23 08:36 Dose: 125 mcg Allergies Allergies Allergy/AdvReac Type Severity Reaction Status Date / Time Unable to Assess Allergy Verified 05/19/23 14:11 Assessment & Plan Assessment & Plan (1) Major depressive disorder: Status: Acute Code(s): F32.9 - Major depressive disorder, single episode, unspecified Assessment and Plan: no m (2) ADHD: Status: Acute Code(s): F90.9 - Attention-deficit hyperactivity disorder, unspecified type Plan The patient is an elderly female with a past history of depression admitted for a suicidal attempt by overdose of [id number] aspirin. She was medically cleared transferred to this facility for psychiatric stabilization. The patient has strong family history of mental illness since her father committed suicide when she was a teenager. Plan 1. Gather collateral information. 2. Continue with Adult and other medications. 3. We discussed risks, benefits, side-effects and alternatives and she agreed increase Cymbalta up to 20 mg p.o. b.i.d.. 4. Continue medical workout. 5. Reassessment results. 6. 15 minutes checks since the patient is able to contract for safety. 7. Start Aricept 5 point mg p.o. q.h.s. to target dementia. She has scored 18/30 on the [place] test and 5.0 on the Andi test. Today on May 23 we increased the to 10 mg p.o. q.h.s. *. May 24, no med changes Reason for continued inpatient stay Substantial Risk for: harm to self Time Spent With Patient Time: Total time managing care of this patient today _20___ minutes.
[2023-05-24] MEDS: Acetaminophen 325 MG TABLET 650 MG PO (17:53)
[2023-05-24 18:00] VITALS: BP 98/51; PULSE 58; RESP 16; TEMP 36.4; O2SAT 98
[2023-05-24] MEDS: traZODone HCL 100 MG TABLET PO (20:46)
[2023-05-24] MEDS: Donepezil HCl 10 MG TABLET PO (20:46)
[2023-05-25 07:55] VITALS: BP 148/78; PULSE 82; RESP 18; TEMP 36.4; O2SAT 98
[2023-05-25] MEDS: Omeprazole 20 MG CAPSULE.DR PO ×2 (08:17→15:20)
[2023-05-25] MEDS: Fluticasone Propionate Nasal 16 GM SPRAY 1 SPRAY NOSTRIL-B ×2 (08:17→20:23)
[2023-05-25] MEDS: Cholecalciferol (Vitamin D3) 25 MCG TABLET 125 MCG PO (08:17)
[2023-05-25] MEDS: Amphetamine Mixed Salts 10 MG TABLET PO (08:17)
[2023-05-25] MEDS: Levothyroxine Sodium 112 MCG, Levothyroxine Sodium 25 MCG 137 MCG PO (08:17)
[2023-05-25] MEDS: Folic Acid 1 MG TABLET PO (08:17)
[2023-05-25] MEDS: DULoxetine HCl 20 MG CAPSULE.DR PO ×2 (08:17→20:23)
--- NOTE | 2023-05-25 11:38 | HO.PSYCHPN ---
Subjective Subjective Date of Service: 05/25/23 Reason For Visit: F32.9 Subjective Notes: 3 Day (expires 05/28) Medical Problems Affecting Mental Status: No Interim History: Social with peers. Reports that her daughter is coming into town to assist with cleaning her house. Looking forward to family meeting tomorrow.Sleeping and eating OK. Medication Compliance: Yes Attending Groups: Yes Review of Systems Acute medical concerns: No Medical Review of Systems: unchanged Mental Status Exam Mental Status Exam Patient Appearance: Well Grooomed Patient Orientation: Person, Place, Time and Situation Level of Consciousness: Alert Patient Behavior: Appropriate Mood Description: Calm Affect Description: Relaxed Patient Cognition Impaired: No Ability to Follow Directions: Excellent Speech Pattern: Clear Memory Description: Working Impaired Hallucinations: None Delusions: Not Present Thought Process: Linear Depressive Symptoms: Difficulty Concentrating Judgement: Fair Diagnostics Vital Signs (24Hr): Vital Signs - 24 hr 05/24/23 18:00 05/25/23 07:55 Temperature 97.5 F 97.6 F Pulse Rate 58 82 Respiratory Rate 16 18 Blood Pressure 98/51 L 148/78 H Pulse Oximetry 98 98 Oxygen Delivery Method Room Air Room Air Labs 05/20/23 08:55 Medications Medications Current Medications Acetaminophen (Acetaminophen 325 Mg Tablet) 650 mg PO Q6H PRN PRN Reason: Headache/Pain Mild Scale (1-3) Last Admin: 05/24/23 17:53 Dose: 650 mg Al Hydroxide/Mg Hydroxide (Magnesium Hydrox/Alum Hydrox 30 Ml Oral.Susp) 30 ml PO Q6H PRN PRN Reason: Heartburn/Nausea Last Admin: 05/19/23 22:49 Dose: 30 ml Amphetamine/Dextroamphetamine (Amphetamine Mixed Salts 10 Mg Tablet) 10 mg PO DAILY [facility] Last Admin: 05/25/23 08:17 Dose: 10 mg Calcium Carbonate (Calcium Carbonate 750 Mg Tab.Chew) 750 mg PO Q4H PRN PRN Reason: Heartburn Last Admin: 05/20/23 03:02 Dose: 750 mg Donepezil HCl (Donepezil Hcl 10 Mg Tablet) 10 mg PO BEDTIME [facility] Last Admin: 05/24/23 20:46 Dose: 10 mg Duloxetine HCl (Duloxetine Hcl 20 Mg Capsule.Dr) 20 mg PO BID [facility] Last Admin: 05/25/23 08:17 Dose: 20 mg Fluticasone Propionate (Fluticasone Propionate Nasal 16 Gm [place]) 1 spray NOSTRIL-B BID [facility] Last Admin: 05/25/23 08:17 Dose: 1 spray Folic Acid (Folic Acid 1 Mg Tablet) 1 mg PO DAILY [facility] Last Admin: 05/25/23 08:17 Dose: 1 mg Hydroxyzine HCl (Hydroxyzine Hcl 25 Mg Tablet) 25 mg PO Q6H PRN PRN Reason: Anxiety Last Admin: 05/20/23 20:12 Dose: 25 mg Levothyroxine Sodium 112 mcg/ (Levothyroxine Sodium 25 mcg) 137 mcg PO DAILY@0600 [facility] Last Admin: 05/25/23 08:17 Dose: 137 mcg Loperamide HCl (Loperamide Hcl 2 Mg Capsule) 2 mg PO Q6H PRN PRN Reason: Diarrhea Last Admin: 05/24/23 12:19 Dose: 2 mg Magnesium Hydroxide (Milk Of Magnesia 30 Ml Oral.Susp) 30 ml PO DAILY PRN PRN Reason: Constipation Methocarbamol (Methocarbamol 500 Mg Tablet) 500 mg PO TID PRN PRN Reason: muscle spasms Last Admin: 05/23/23 21:28 Dose: 500 mg Omeprazole (Omeprazole 20 Mg Capsule.Dr) 20 mg PO BID@0630,1630 [facility] Last Admin: 05/25/23 08:17 Dose: 20 mg Trazodone HCl (Trazodone Hcl 100 Mg Tablet) 100 mg PO BEDTIME MRX1 PRN PRN Reason: Insomnia Last Admin: 05/24/23 20:46 Dose: 100 mg Vitamin D (Cholecalciferol (Vitamin D3) 25 Mcg Tablet) 125 mcg PO DAILY [facility] Last Admin: 05/25/23 08:17 Dose: 125 mcg Allergies Allergies Allergy/AdvReac Type Severity Reaction Status Date / Time Unable to Assess Allergy Verified 05/19/23 14:11 Assessment & Plan Assessment & Plan (1) Major depressive disorder: Status: Acute Code(s): F32.9 - Major depressive disorder, single episode, unspecified Assessment and Plan: no med changes, consider increasing duloxetine (2) ADHD: Status: Acute Code(s): F90.9 - Attention-deficit hyperactivity disorder, unspecified type Plan The patient is an elderly female with a past history of depression admitted for a suicidal attempt by overdose of ahqn-jqi-sstetum aspirin. She was medically cleared transferred to this facility for psychiatric stabilization. The patient has strong family history of mental illness since her father committed suicide when she was a teenager. Plan 1. Gather collateral information. 2. Continue with Adult and other medications. 3. We discussed risks, benefits, side-effects and alternatives and she agreed increase Cymbalta up to 20 mg p.o. b.i.d.. 4. Continue medical workout. 5. Reassessment results. 6. 15 minutes checks since the patient is able to contract for safety. 7. Start Aricept 5 point mg p.o. q.h.s. to target dementia. She has scored 18/30 on the [place] test and 5.0 on the Andi test. Today on May 23 we increased the to 10 mg p.o. q.h.s. *. May 24, no med changes Reason for continued inpatient stay Substantial Risk for: inability to function Time Spent With Patient Time: Total time managing care of this patient today __15__ minutes.
[2023-05-25] MEDS: methocarbamoL 500 MG TABLET PO ×2 (13:55→21:31)
[2023-05-25 20:00] VITALS: BP 125/81; PULSE 74; RESP 16; TEMP 36.1; O2SAT 97
[2023-05-25] MEDS: Donepezil HCl 10 MG TABLET PO (20:23)
[2023-05-25] MEDS: Acetaminophen 325 MG TABLET 650 MG PO (20:23)
[2023-05-26] MEDS: Levothyroxine Sodium 112 MCG, Levothyroxine Sodium 25 MCG 137 MCG PO (06:37)
[2023-05-26] MEDS: Omeprazole 20 MG CAPSULE.DR PO ×2 (06:37→16:05)
--- NOTE | 2023-05-26 08:28 | HO.PSYCHPN ---
Subjective Subjective Date of Service: 05/26/23 Reason For Visit: F32.9 Subjective Notes: Conditional Voluntary and 3 Day Interim History: The nursing staff reported the patient signed a 3 day notice over the weekend. We will have a family meeting today with her daughter who came to town and according to the patient, she will help her to clean up her apartment. On interview the patient denies new symptoms, limited insight into her condition. Mental Status Exam Mental Status Exam Patient Appearance: Appropriate Patient Orientation: Person and Situation Level of Consciousness: Awake and Appropriate Patient Behavior: Guarded and Passive Mood Description: Withdrawn Patient Cognition Impaired: Yes Ability to Follow Directions: Good Speech Pattern: Clear Hallucinations: None Delusions: Not Present Thought Process: Distracted and Slowed Thinking Thought Content: positive for Circumstantial and positive for Poverty of Content Judgement: Fair Diagnostics Vital Signs (24Hr): Vital Signs - 24 hr 05/25/23 20:00 Temperature 96.9 F Pulse Rate 74 Respiratory Rate 16 Blood Pressure 125/81 Pulse Oximetry 97 Oxygen Delivery Method Room Air Labs 05/20/23 08:55 Medications Medications Current Medications Acetaminophen (Acetaminophen 325 Mg Tablet) 650 mg PO Q6H PRN PRN Reason: Headache/Pain Mild Scale (1-3) Last Admin: 05/25/23 20:23 Dose: 650 mg Al Hydroxide/Mg Hydroxide (Magnesium Hydrox/Alum Hydrox 30 Ml Oral.Susp) 30 ml PO Q6H PRN PRN Reason: Heartburn/Nausea Last Admin: 05/19/23 22:49 Dose: 30 ml Amphetamine/Dextroamphetamine (Amphetamine Mixed Salts 10 Mg Tablet) 10 mg PO DAILY [facility] Last Admin: 05/25/23 08:17 Dose: 10 mg Calcium Carbonate (Calcium Carbonate 750 Mg Tab.Chew) 750 mg PO Q4H PRN PRN Reason: Heartburn Last Admin: 05/20/23 03:02 Dose: 750 mg Donepezil HCl (Donepezil Hcl 10 Mg Tablet) 10 mg PO BEDTIME [facility] Last Admin: 05/25/23 20:23 Dose: 10 mg Duloxetine HCl (Duloxetine Hcl 20 Mg Capsule.Dr) 20 mg PO BID [facility] Last Admin: 05/25/23 20:23 Dose: 20 mg Fluticasone Propionate (Fluticasone Propionate Nasal 16 Gm [place]) 1 spray NOSTRIL-B BID [facility] Last Admin: 05/25/23 20:23 Dose: 1 spray Folic Acid (Folic Acid 1 Mg Tablet) 1 mg PO DAILY [facility] Last Admin: 05/25/23 08:17 Dose: 1 mg Hydroxyzine HCl (Hydroxyzine Hcl 25 Mg Tablet) 25 mg PO Q6H PRN PRN Reason: Anxiety Last Admin: 05/20/23 20:12 Dose: 25 mg Levothyroxine Sodium 112 mcg/ (Levothyroxine Sodium 25 mcg) 137 mcg PO DAILY@0600 [facility] Last Admin: 05/26/23 06:37 Dose: 137 mcg Loperamide HCl (Loperamide Hcl 2 Mg Capsule) 2 mg PO Q6H PRN PRN Reason: Diarrhea Last Admin: 05/24/23 12:19 Dose: 2 mg Magnesium Hydroxide (Milk Of Magnesia 30 Ml Oral.Susp) 30 ml PO DAILY PRN PRN Reason: Constipation Methocarbamol (Methocarbamol 500 Mg Tablet) 500 mg PO TID PRN PRN Reason: muscle spasms Last Admin: 05/25/23 21:31 Dose: 500 mg Omeprazole (Omeprazole 20 Mg Capsule.Dr) 20 mg PO BID@0630,1630 [facility] Last Admin: 05/26/23 06:37 Dose: 20 mg Trazodone HCl (Trazodone Hcl 100 Mg Tablet) 100 mg PO BEDTIME MRX1 PRN PRN Reason: Insomnia Last Admin: 05/24/23 20:46 Dose: 100 mg Vitamin D (Cholecalciferol (Vitamin D3) 25 Mcg Tablet) 125 mcg PO DAILY [facility] Last Admin: 05/25/23 08:17 Dose: 125 mcg Allergies Allergies Allergy/AdvReac Type Severity Reaction Status Date / Time Unable to Assess Allergy Verified 05/19/23 14:11 Assessment & Plan Assessment & Plan (1) Major depressive disorder: Status: Acute Code(s): F32.9 - Major depressive disorder, single episode, unspecified Assessment and Plan: no med changes, consider increasing duloxetine (2) ADHD: Status: Acute Code(s): F90.9 - Attention-deficit hyperactivity disorder, unspecified type Plan The patient is an elderly female with a past history of depression admitted for a suicidal attempt by overdose of [id number] aspirin. She was medically cleared transferred to this facility for psychiatric stabilization. The patient has strong family history of mental illness since her father committed suicide when she was a teenager. Plan 1. Gather collateral information. 2. Continue with Adult and other medications. 3. We discussed risks, benefits, side-effects and alternatives and she agreed increase Cymbalta up to 20 mg p.o. b.i.d.. 4. Continue medical workout. 5. Reassessment results. 6. 15 minutes checks since the patient is able to contract for safety. 7. Start Aricept 5 point mg p.o. q.h.s. to target dementia. She has scored 18/30 on the [place] test and 5.0 on the Andi test. Today on May 23 we increased the to 10 mg p.o. q.h.s. 8. Family meeting today for discharge Reason for continued inpatient stay Substantial Risk for: inability to function, rapid decompensation and med/psych decompensation Time Spent With Patient Time: Total time managing care of this patient today __20__ minutes.
[2023-05-26 08:30] VITALS: BP 116/80; PULSE 69; RESP 16; TEMP 36.1; O2SAT 99
[2023-05-26] MEDS: Cholecalciferol (Vitamin D3) 25 MCG TABLET 125 MCG PO (08:34)
[2023-05-26] MEDS: Amphetamine Mixed Salts 10 MG TABLET PO (08:35)
[2023-05-26] MEDS: Folic Acid 1 MG TABLET PO (08:36)
[2023-05-26] MEDS: DULoxetine HCl 20 MG CAPSULE.DR PO ×2 (08:36→20:04)
[2023-05-26] MEDS: Fluticasone Propionate Nasal 16 GM SPRAY 1 SPRAY NOSTRIL-B ×2 (08:37→20:04)
[2023-05-26 18:00] VITALS: BP 102/64; PULSE 65; RESP 18; TEMP 36.4; O2SAT 98
[2023-05-26] MEDS: methocarbamoL 500 MG TABLET PO (20:04)
[2023-05-26] MEDS: Donepezil HCl 10 MG TABLET PO (20:04)
[2023-05-26] MEDS: Acetaminophen 325 MG TABLET 650 MG PO (20:05)
[2023-05-27] MEDS: traZODone HCL 100 MG TABLET PO (01:56)
[2023-05-27] MEDS: Levothyroxine Sodium 112 MCG, Levothyroxine Sodium 25 MCG 137 MCG PO (06:47)
[2023-05-27] MEDS: Omeprazole 20 MG CAPSULE.DR PO (06:47)
[2023-05-27 09:00] VITALS: BP 110/63; PULSE 66; RESP 16; TEMP 36.1; O2SAT 99
[2023-05-27] MEDS: Amphetamine Mixed Salts 10 MG TABLET PO (09:07)
[2023-05-27] MEDS: Cholecalciferol (Vitamin D3) 25 MCG TABLET 125 MCG PO (09:08)
[2023-05-27] MEDS: DULoxetine HCl 20 MG CAPSULE.DR PO (09:08)
[2023-05-27] MEDS: Folic Acid 1 MG TABLET PO (09:08)
[2023-05-27] MEDS: Fluticasone Propionate Nasal 16 GM SPRAY 1 SPRAY NOSTRIL-B (09:11)
--- NOTE | 2023-05-27 09:33 | PM.PSYDC ---
DS: Providers Provider Date of Service: 05/27/23 Date of admission: 05/19/23 14:06 Date of discharge: 05/27/23 Primary care physician: Micah Lucas MD Consults: 05/19/23 14:12 Consult to Hospitalist Routine Comment: Consulting Provider: Hospitalist Reason For Exam: Direct admission DS: Diagnosis Discharge Diagnosis (1) Major depressive disorder: Status: Acute (2) ADHD: Status: Acute (3) Dementia: Status: Acute DS: Medications Discharge Medications Home Medications: Home Medications Medication Instructions Recorded Confirmed Vitamin D3 5,000 unit PO USEASDIRECTD 05/19/23 05/19/23 dextroamphetamine-amphetamine 10 10 mg PO DAILY 05/19/23 05/19/23 mg tablet (Adderall) diazepam 5 mg tablet 10 mg PO DAILY 05/19/23 05/19/23 duloxetine 30 mg capsule,delayed 20 mg PO DAILY 05/19/23 05/19/23 release eszopiclone 2 mg tablet 2 mg PO BEDTIME 05/19/23 05/19/23 flunisolide 25 mcg (0.025 %) nasal 25 mcg intranasal BID 05/19/23 05/19/23 spray folic acid 1 mg PO DAILY 05/19/23 05/19/23 levothyroxine 125 mcg tablet 137 mcg PO DAILY 05/19/23 05/19/23 methocarbamol 500 mg tablet 500 mg PO TID 05/19/23 05/19/23 omeprazole 20 mg capsule,delayed 20 mg PO BID 05/19/23 05/19/23 release oxycodone 5 mg tablet 5 mg PO Q2-4H PRN Pain 05/19/23 05/19/23 tramadol 50 mg PO USEASDIRECTD PRN Pain 05/19/23 05/19/23 Mental Status Exam Mental Status Exam Patient Appearance: Well Grooomed and Appropriate Patient Orientation: Person, Place and Situation Level of Consciousness: Awake and Appropriate Patient Behavior: Appropriate and Passive Mood Description: Calm Affect Description: Constricted Patient Cognition Impaired: Yes Ability to Follow Directions: Good Speech Pattern: Clear Hallucinations: None Delusions: Not Present Thought Process: Linear Thought Content: positive for [place] and positive for Circumstantial Judgement: Fair Data Data Completed and Pending Completed studies during hospitalization [Text1]: 05/20/23 08:55 Sodium 136 Potassium 3.8 Chloride 95 L Carbon Dioxide 29 Anion Gap 16 BUN 20 H Creatinine 1.23 Estim Creat Clear Calc TNP Estimated GFR 43 Fasting Glucose 115 H Calcium 11.0 H Total Bilirubin 0.6 AST 23 ALT 23 Alkaline Phosphatase 80 Total Protein 7.7 Albumin 4.4 Triglycerides 225 Cholesterol 362 LDL Cholesterol, Calc 274 HDL Cholesterol 43 DS: Summary Hospital Course Hospital Course: The patient is a 73-year-old female, with a prior history of major depressive disorder and ADHD was brought to the emergency room after she overdosed on [id number]-rkl-xbvqzoo medication in a suicidal attempt. She was medically cleared, assessed by crisis and transferring to this facility for psychiatric stabilization. Please see the HPI of the admission note for further details. On interview the patient was remorseful of that she impulsively overdosed on aspirin, she reported several psychosocial stressors such as social isolation after the COVID pandemia, we reviewed her list of medications and she was on Cymbalta 20 mg daily. We discussed risks, benefits, side-effects and alternatives and she agreed increase up to 20 mg p.o. b.i.d.. The patient was assessed by the occupational therapist and she scored quite low on the [place] test an Andi test. We decided to start Aricept that it was titrated up to 10 mg p.o. q.h.s. with no side effects. She was able to participate in groups she was future oriented and we had several family meetings with her to discuss discharge planning. Since there were no safety concerns discharge planning was scheduled for today. She is able to contract for safety under no psychotic symptoms at this moment. Time spent discussing smoking cessation with patient: 3 to 10 minutes Status at Discharge Cognitive/behavioral status at discharge: Impaired at baseline Functional status at discharge: independent ambulation Overall status at discharge: patient is back to baseline Time Spent with Patient Time attestation: Total time managing care of this patient today _30___ minutes. Time spent: Less than 30 minutes Discharge Plan Discharge Anticipated Discharge Date/Time: 05/27/23 10:00 Patient Disposition: Home, Self-Care Discharge Diagnosis: Dementia Major depressive disorder ADHD Referrals: Dr Noman Vera [Other] - 05/30/23 10:00 am (Your next appointment with Dr Vera is scheduled for 05/30/23 at 1000 in office. ) Clinical and Support Options [Other] - 06/02/23 10:00 am (You are scheduled for an therapy intake appointment with Cristiana Rodríguez at [facility] in office on 06/02/23 at 10am. Please go to clinic and bring insurance card. Please arrive 15 minutes ahead of scheduled appointment time. ) Micah Lucas MD [Primary Care Provider] - 1 Week Discharge Medications: New methocarbamol 500 mg Tablet 500 mg PO TID PRN (Reason: muscle spasms) 30 Days Qty: 60 0RF levothyroxine 137 mcg Tablet 137 mcg PO DAILY@0600 30 Days Qty: 30 0RF acetaminophen 325 mg Tablet 650 mg PO Q6H PRN (Reason: Headache/Pain Mild Scale (1-3)) 30 Days Qty: 30 0RF donepezil 10 mg Tablet 10 mg PO BEDTIME 30 Days Qty: 30 0RF calcium carbonate [Antacid Ext Str (calcium carb)] 300 mg (750 mg) Tablet,Chewable 750 mg PO Q4H PRN (Reason: Heartburn) 30 Days Qty: 60 0RF trazodone 100 mg Tablet 100 mg PO BEDTIME MRX1 PRN (Reason: Insomnia) 30 Days Qty: 30 0RF folic acid 1 mg Tablet 1 mg PO DAILY 30 Days Qty: 30 0RF duloxetine 20 mg Capsule,Delayed Release(Dr/Ec) 20 mg PO BID 30 Days Qty: 60 0RF cholecalciferol (vitamin D3) 25 mcg (1,000 unit) Tablet 125 mcg PO DAILY 30 Days Qty: 150 0RF Continued dextroamphetamine-amphetamine [Adderall] 10 mg Tablet 10 mg PO DAILY 30 Days Qty: 30 0RF flunisolide 25 mcg (0.025 %) spray,non-aerosol 25 mcg intranasal BID 30 Days Qty: 5 0RF Rx Instructions: X 30 days omeprazole 20 mg capsule,delayed release(DR/EC) 20 mg PO BID 30 Days Qty: 60 0RF Changed tramadol 50 mg tablet 50 mg PO BID PRN (Reason: Pain) 30 Days Qty: 60 0RF Discontinued methocarbamol [Robaxin] 500 mg Tablet 500 mg PO TID Patient Comments: pt. not taking levothyroxine 125 mcg tablet 137 mcg PO DAILY diazepam 5 mg tablet 10 mg PO DAILY oxycodone 5 mg tablet 5 mg PO Q2-4H PRN (Reason: Pain) Patient Comments: pt. not taking duloxetine 30 mg capsule,delayed release(DR/EC) 20 mg PO DAILY eszopiclone 2 mg tablet 2 mg PO BEDTIME Vitamin D3 5,000 mg tablet 5,000 unit PO USEASDIRECTD Patient Comments: unknown frequency folic acid 1 mg tablet 1 mg PO DAILY Discharge Orders: Discharge Order (Routine); Ordered 05/27/23 Ordered By: Herman Benedict Diet: Advance to usual diet Activity on Discharge: As tolerated Stand Alone Forms: Patient Portal Discharge page Care Plan Goals: Care plan goals achieved in this admission Health Concerns: Continue treatment with primary care physician as an outpatient Plan of Treatment: Continue medication management by her regular prescriber. Referred to [facility] for psychotherapy. Assessment: Elderly female with a long history of major depressive disorder, ADHD and recently admitted for an impulsive overdose. She was diagnosed also with dementia and started on Aricept. At this moment safe to be discharged to the community with ancillary services and aftercare.
== END 2023-05-27 11:25 | disposition home or self-care (01) | DRG 754 ==
PROVIDERS: Admitting Provider Psychiatry & Neurology Psychiatry; PCP Family Medicine; Visit Provider Psychiatry & Neurology Psychiatry
DX: F32.9 Major depressive disorder, single episode, unspecified (principal); F03.90 Unspecified dementia, unspecified severity, without behavioral disturbance, psychotic disturbance, mood disturbance, and anxiety; R45.851 Suicidal ideations; N18.30 Chronic kidney disease, stage 3 unspecified; K22.70 Barrett's esophagus without dysplasia; E03.9 Hypothyroidism, unspecified; K21.9 Gastro-esophageal reflux disease without esophagitis; F90.9 Attention-deficit hyperactivity disorder, unspecified type; M19.90 Unspecified osteoarthritis, unspecified site; Z91.51 Personal history of suicidal behavior; Z79.890 Hormone replacement therapy; Z79.899 Other long term (current) drug therapy
CPT/HCPCS: 36415; 80053; 80061

== ENCOUNTER → 2023-05-19 14:06 | Outpatient (BNV) | payer BC, SELFPAY | PROVIDERS: Admitting Provider Psychiatry & Neurology Psychiatry; PCP Family Medicine; Visit Provider Psychiatry & Neurology Psychiatry | DX: F33.2 Major depressive disorder, recurrent severe without psychotic features (principal); F90.9 Attention-deficit hyperactivity disorder, unspecified type | CPT/HCPCS: 99221; 99231; 99232; 99238 ==

== ENCOUNTER → 2023-05-19 14:06 | Outpatient (BNV) | payer BC, SELFPAY | PROVIDERS: Admitting Provider Psychiatry & Neurology Psychiatry; PCP Family Medicine; Visit Provider Physician Assistant | DX: E03.9 Hypothyroidism, unspecified (principal); N18.30 Chronic kidney disease, stage 3 unspecified; K22.70 Barrett's esophagus without dysplasia; Z00.00 Encounter for general adult medical examination without abnormal findings | CPT/HCPCS: 99222 ==